=== PATIENT | female | born 1995 | race Asian ===

== ENCOUNTER 2023-08-29 11:28 | Emergency (ER) | payer OTHER ==
[~2023-08-29] VITALS: Ht 165.1 cm; Wt 66.0 kg
[2023-08-29 11:29] VITALS: O2SAT 98
[2023-08-29] MEDS: TRAMADOL HCL/ACETAMINOPHEN 37.5/325MG TABLET PO ONE (12:09)
[2023-08-29] MEDS ORDERED: NAP5EC MT (14:38)
[2023-08-29 15:05] VITALS: BP 107/73; PULSE 68; RESP 15; TEMP 98.7
== END 2023-08-29 15:06 | disposition home or self-care (01) ==
LOC: ER 11:28
DX: R10.2 Pelvic and perineal pain (principal); N94.6 Dysmenorrhea, unspecified
CPT/HCPCS: 81025; 84702; 86850; 86900; 86901; 36415; 76830; 76856; 99284; Z7610